=== PATIENT | female | born 1930 | race African-American/Black ===

== ENCOUNTER 2017-07-11 08:02 | Day surgery (SDC) | payer MEDICARE, BC ==
--- NOTE | 2017-07-10 23:04 | Pre-Procedure Note/Attestation ---
Pre-Procedure Note/Attestation Complete Prior to Procedure Planned Procedure: right - Removal of cataract and placement of intraocular lens, right eye Procedure Narrative: Removal of cataract and placement of intraocular lens, right eye Indications for Procedure Pre-Operative Diagnosis: Cataract, combined, right eye Attestation I attest that I discussed the nature of the procedure; its benefits; risks and complications; and alternatives (and the risks and benefits of such alternatives ), prior to the procedure, with the patient (or the patient's legal corporate representative). I attest that, if there was a reasonable possibility of needing a blood transfusion, the patient (or the patient's legal corporate representative) was given the [place] Department [employer] standardized written summary, pursuant to the [place] Blood Safety Act ([place] Health and Safety Code # 1645, as amended). I attest that I re-evaluated the patient just prior to the surgery and that there has been no change in the patient's H&P, except as documented below: Carlos Mandujano MD Jul 10, 2017 23:04
[~2017-07-11] VITALS: Ht 162.6 cm; Wt 73.5 kg
[2017-07-11] VITALS (8 sets, daily range): BP systolic 118–143; BP diastolic 59–76
[~2017-07-11 08:02] MED LIST: D5 1/2NS 1000ml IV ONE; Dexamethasone 4mg/ml vial ONE; Ketorolac 30mg Inj ONE; Lidocaine 1% MPF 10mg/ml 5ml ONE; Midazolam 2mg/2ml Inj ONE; Pred Forte 1% Opth Susp 1ml RIGHT EYE ONE; Propofol 200mg/20ml IV ONE; Zemuron 50mg/5ml Inj IV ONE; fentaNYL 100 mcg/2 mL IV ONE
[2017-07-11] MEDS ORDERED: Akten 3.5% 1ml Btl ONE (08:37)
[2017-07-11] MEDS ORDERED: Cyclopentolate 1% Opth Sol 2ml ONE (08:38)
[2017-07-11] MEDS ORDERED: Ciprofloxacin Opth Soln 2.5ml ONE (08:38)
[2017-07-11] MEDS ORDERED: Tropicamide 1% Opth 15ml Soln ONE (08:38)
[2017-07-11] MEDS ORDERED: Pred Forte 1% Opth Susp 1ml ONE (08:38)
[2017-07-11] MEDS ORDERED: Phenylephrine 10% Opth Soln 5ml ONE (08:38)
[2017-07-11] MEDS: Akten 3.5% 1ml Btl RIGHT EYE SCH ×3 (08:44→09:13)
[2017-07-11] MEDS: Tropicamide 1% Opth 15ml Soln RIGHT EYE SCH ×3 (08:44→09:13)
[2017-07-11] MEDS: Ciprofloxacin Opth Soln 2.5ml RIGHT EYE SCH ×3 (08:44→09:13)
[2017-07-11] MEDS: Cyclopentolate 1% Opth Sol 2ml RIGHT EYE SCH ×3 (08:44→09:13)
[2017-07-11] MEDS: Phenylephrine 10% Opth Soln 5ml RIGHT EYE SCH ×3 (08:44→09:13)
[2017-07-11] MEDS ORDERED: BENICAR40 MG ORAL (09:06)
[2017-07-11] MEDS ORDERED: AMLODIPINE BESY10 MG ORAL (09:06)
[2017-07-11] MEDS ORDERED: ALLOPURINOL100 M1 ORAL (09:06)
[2017-07-11] MEDS ORDERED: KLOR-CON M2020 MEQ ORAL (09:06)
[2017-07-11] MEDS ORDERED: WARFARIN SODIUM5 MG ORAL (09:06)
[2017-07-11] MEDS ORDERED: SYNTHROID25 MCG ORAL (09:06)
[2017-07-11] MEDS ORDERED: METFORMIN HCL500 M1 ORAL (09:06)
[2017-07-11] MEDS ORDERED: Sterile Water Irrig 1000ml IRRIG ONE (12:00)
[2017-07-11] MEDS ORDERED: NS Irrig 1000ml ONE (12:00)
--- NOTE | 2017-07-11 12:09 | Anethesia Preoperative Eval ---
Anesthesia Pre-op PMH/ROS General Date of Evaluation: Jul 11, 2017 Anesthesiologist: Gideon ASA Score: ASA 3 Mallampati Score Class I : Soft palate, uvula, fauces, pillars visible Class II: Soft palate, uvula, fauces visible Class III: Soft palate, base of uvula visible Class IV: Only hard plate visible Mallampati Classification: Class II Surgeon: Delbert Diagnosis: Right cataract Surgical Procedure: Right cataract extraction with IOL Anesthesia History: none Family History: no anesthesia problems Allergies: Coded Allergies: AMOXICILLIN (Verified Allergy, Mild, 12/24/09) Medications: see eMAR Past Medical History Cardiovascular: Reports: HTN, other - afib; Denies: CAD, MA, valve dz, arrhythmia Pulmonary: Reports: asthma; Denies: COPD, PAULINA, other Gastrointestinal/Genitourinary: Denies: GERD, CRI, ESRD, other Neurologic/Psychiatric: Denies: dementia, CVA, depression/anxiety, TIA, other Endocrine: Reports: DM, hypothyroidism; Denies: steroids, other HEENT: Denies: cataract (L), cataract (R), glaucoma, [employer] (L), [employer] (R), other Hematology/Immune: Denies: anemia, DVT, bleeding disorder, other Musculoskeletal/Integumentary: Denies: OA, RA, DJD, DDD, edema, other PSxH Narrative: CORNELIA brennan Anesthesia Pre-op Phys. Exam Physician Exam Last Vital Signs Date Time Temp Pulse Resp B/P (MAP) Pulse Ox O2 Delivery O2 Flow Rate FiO2 07/11/17 08:48 97.3 85 18 118/72 94 Room Air 97.3 Constitutional: NAD Cardiovascular: RRR Respiratory: CTA Airway Exam Mallampati Score: Class II MO: full ROM: full Teeth: intact Anesthesia Pre-op A/P Labs see chart Studies Pre-op Studies: EKG - afib Risk Assessment & Plan Assessment: ASA III Plan: MAC Status Change Before Surgery: No Pre-Antibiotics Drug: N/A AFSHAN DOMINGUEZ M.D. Jul 11, 2017 12:09
[2017-07-11] MEDS ORDERED: Midazolam 2mg/2ml Inj ONE (12:19)
[2017-07-11] MEDS ORDERED: Alfentanil 2ml Inj ONE (12:20)
--- NOTE | 2017-07-11 12:38 | Immediate Post-Op Evaluation ---
Immediate Post-Op Evalulation Immediate Post-Op Evalulation Procedure: Cat Ext IOL OD Date of Evaluation: Jul 11, 2017 Time of Evaluation: 13:39 IV Fluids: 700 LR Blood Products: 0 Estimated Blood Loss: 1 Urinary Output: 0 Blood Pressure Systolic: 143 Blood Pressure Diastolic: 76 Pulse Rate: 75 Respiratory Rate: 16 O2 Sat by Pulse Oximetry: 97 Temperature (Fahrenheit): 97.6 Pain Score (1-10): 1 Nausea: No Vomiting: No Complications 0 Patient Status: awake, reacts, patent, none Hydration Status: adequate Александр Miles MD Jul 11, 2017 12:38
--- NOTE | 2017-07-11 12:39 | 48 Hour Post Anesthesia Eval ---
Post Anesthesia Evaluation Procedure: Cat Ext IOL OD Date of Evaluation: Jul 11, 2017 Time of Evaluation: 15:43 Blood Pressure Systolic: 141 0: 74 Pulse Rate: 73 Respiratory Rate: 18 Temperature (Fahrenheit): 98.2 O2 Sat by Pulse Oximetry: 97 Airway: patent Nausea: No Vomiting: No Pain Intensity: 1 Hydration Status: adequate Cardiopulmonary Status: Stable Mental Status/LOC: patient returned to baseline Follow-up Care/Observations: 0 Post-Anesthesia Complications: 0 Follow-up care needed: ready to discharge Александр Miles MD Jul 11, 2017 12:39
--- NOTE | 2017-07-11 13:35 | Discharge Instructions ---
Discharge Instructions Discharge Instructions Follow Up Orders Wear eye shield at all times except to place eye drops Continue preoperative eye drops Followup tomorrow in Dr Mandujano's office For Congestive Heart Failure Reminder Report to your physician any weight gain of 5 pounds or more in one week. Carlos Mandujano MD Jul 11, 2017 13:35
--- NOTE | 2017-07-11 13:38 | Brief Operative Note ---
Immediate Post Operative Note Operative Note Pre-op Diagnosis: Cataract, combined, right eye Procedure: Phaco PC IOL, OD Use of Malyugian Ring, (7.0) Post-op Diagnosis: Cataract, combined, right eye Miosis, Right eye Surgeon: Vimal Mandujano MD Youth Worker: none Anesthesiologist: Dr Miles Anesthesia: local, MAC Specimen: none Complications: none Fluids: as noted Implant(s) used?: Yes - dina sn60wf 21.5 Carlos Mandujano MD Jul 11, 2017 13:38
[2017-07-11] MEDS ORDERED: BSS 500ml btl ONE (13:39)
[2017-07-11] MEDS ORDERED: BSS 15ml BTL ONE (13:39)
[2017-07-11] MEDS ORDERED: Povidone-Iodine 5% opth solution ONE (13:39)
[2017-07-11] MEDS ORDERED: Carbachol 0.01% Op Soln 1.5ml vial ONE (13:39)
[2017-07-11] MEDS ORDERED: Sodium Hyaluronate 10 mg/ml 0.85ml ONE (13:40)
[2017-07-11] MEDS ORDERED: LR 1000ml 1,000 ML IVLG SCH (13:59)
[2017-07-11] MEDS ORDERED: Midazolam 2mg/2ml Inj IVP PRN (14:00)
[2017-07-11] MEDS ORDERED: oxyCODONE HCL/Acetaminophen 5/325mg ORAL PRN (14:00)
[2017-07-11] MEDS ORDERED: Ketorolac 30mg Inj IV PRN ×2 (14:00)
[2017-07-11] MEDS ORDERED: HYDROcodone/Acetamin 7.5/325 tab ORAL PRN (14:00)
[2017-07-11] MEDS ORDERED: Labetalol 5mg/ml 20ml vial IV PRN (14:00)
[2017-07-11] MEDS ORDERED: Norco 5mg/325mg tab ORAL PRN (14:00)
[2017-07-11] MEDS ORDERED: Hydromorphone 0.5mg/0.5ml inj IVP PRN (14:00)
[2017-07-11] MEDS ORDERED: LORazepam Inj 2mg/ml 1ml IV PRN (14:00)
[2017-07-11] MEDS ORDERED: DiphenhydrAMINE 50mg/ml Inj IVP PRN (14:00)
[2017-07-11] MEDS ORDERED: fentaNYL 100 mcg/2 mL IV PRN (14:00)
[2017-07-11] MEDS ORDERED: Atropine Inj 1mg/10ml Syr IV PRN (14:00)
[2017-07-11] MEDS ORDERED: EPINEPHrine 1mg/1ml Amp ONE (15:07)
[2017-07-11] MEDS ORDERED: Dexamethasone 4mg/ml vial ONE (15:07)
[2017-07-11] MEDS ORDERED: Lidocaine 4% Amp ONE (15:07)
[2017-07-11] MEDS ORDERED: Maxitrol Opth Oint 3.5gm ONE (15:07)
[2017-07-11] MEDS ORDERED: Tetracaine 0.5% Opth 4ml Soln ONE (15:07)
[2017-07-11] MEDS ORDERED: Lidocaine 1% MPF 10mg/ml 5ml ONE (15:07)
--- NOTE | 2017-07-12 19:00 | Operative Note - Dictated ---
DATE OF OPERATION: 07/11/2017 SURGEON: Carlos Mandujano M.D. RECORDING CLERK SURGEON: None. ANESTHESIOLOGIST: Александр Miles M.D. ANESTHESIA: Local/standby/monitored anesthesia care. PREOPERATIVE DIAGNOSIS: Cataract, combined, right eye. POSTOPERATIVE DIAGNOSES: 1. Cataract, combined, right eye. 2. Miosis, right eye. PROCEDURE: 1. Phacoemulsification of cataract, right eye. 2. Placement of posterior chamber intraocular lens, right eye (model [id number], power 21.5, Yariel). 3. Use of Malyugin ring (7.0 mm). SPECIMENS: None. COMPLICATIONS: None. INDICATIONS FOR SURGERY: The patient has had the painless progressive decrease in visual acuity in the right eye secondary to cataract. The patient understands the risks of surgery including infection, bleeding, need for further surgery, loss of vision, no improvement in vision, loss of the eye, loss of life, glaucoma, retinal detachment and understands these risks and elects to proceed with surgery. FINDINGS: The patient had a +3 nuclear sclerotic cataract as well as +1 anterior subcapsular cataract. In addition, the pupil is miotic, dilated no more than approximately 4 mm. OPERATIVE NOTE: After informed consent was obtained, the patient was brought to the operating room, placed in supine position. Cardiac and respiratory monitors were attached. A time-out was performed and all criteria were met and everyone in the room agreed. The right eye was then draped and prepped in sterile manner for ocular surgery. A lid speculum was placed in the eye. A 1% lidocaine preservative-free was injected at the approximate 9 o'clock limbus. A conjunctiva peritomy from approximately 8:30 to 9:30 was made and dissected posteriorly. Hemostasis was attempted at this point, but the phacoemulsification unit was not working. At this time the whole unit had to be replaced and this resulted in a delay of the case. Once the new unit was brought into the operating room, and tested and . Hemostasis was maintained with bipolar cautery. A 2.8 mm limbal incision was made centered approximately 9 o'clock and dissected anteriorly. Paracentesis was made approximately 12 o'clock and was injected into the anterior chamber followed by Healbright. The anterior chamber was then entered using a 2.8 mm keratome. Because of miotic pupil a Malyugin ring (7.0) was placed into the anterior chamber. This was attached at 4 points on the pupillary margin. After Malyugin ring was implanted and attached at 4 points of the pupillary margin and the anterior capsulorrhexis was then performed. Hydrodissection and hydrodelineation was performed. The lens was then phacoemulsified using divide and conquer four-quadrant technique. Residual cortical material was then aspirated. The lens was taken from its package, placed into the cartridge. Healon was injected into the anterior chamber and capsular bag. The tip of the cartridge was placed through the limbal incision and the lens was injected into the capsular bag and centered nicely with a Sinskey hook. The Malyugin ring was then removed. Healon was then aspirated from the anterior chamber and capsular bag. One 10-0 nylon interrupted suture was then placed through the limbal incision and the knot was rotated and buried. The paracentesis was hydrated and closed. All wounds were checked and found to be watertight. The intraocular lens was visually inspected and found to be on the 3 o'clock to 9 o'clock meridian and both haptics as well as the optic was in the capsular bag. The conjunctiva was then closed with forceps cautery. The lid speculum and drapes were removed from the eye and drops of Vigamox and Pred Forte were applied to the eye followed by Maxitrol ointment a shield. The patient tolerated the procedure well left the operating room in awake, alert and stable condition. Carlos Mandujano M.D. DR: LAURA JOB#: [id number] CC:
== END 2017-07-11 14:50 | disposition home or self-care (01) ==
LOC: SUR 08:02
DX: H25.11 Age-related nuclear cataract, right eye (principal); H25.031 Anterior subcapsular polar age-related cataract, right eye; E11.9 Type 2 diabetes mellitus without complications; I10 Essential (primary) hypertension; E03.9 Hypothyroidism, unspecified; Z90.49 Acquired absence of other specified parts of digestive tract; Z88.8 Allergy status to other drugs, medicaments and biological substances; E78.00 Pure hypercholesterolemia, unspecified; Z79.01 Long term (current) use of anticoagulants
CPT/HCPCS: 66982; 82962; J0171; J1100; J2250; J3490; V2632; 94003; 94150; J2405